=== PATIENT | female | born 1980 | race Caucasian/White ===

== ENCOUNTER 2016-10-15 10:07 | Observation (INO) | payer OTHER ==
[~2016-10-15] VITALS: Ht 157.5 cm; Wt 90.0 kg
[2016-10-15] VITALS (7 sets, daily range): BP systolic 120–144; BP diastolic 72–84; PULSE 77–104; RESP 15–20; TEMP 97.6–100; O2SAT 92–99
[~2016-10-15 10:07] MED LIST: CEPH500C3 PO; DICY10 PO; ESTRPOW15 XX; FENT100D T-DERMAL; LYRI150C PO; LYRI50CA PO; MORP1TAB24 PO; OXYC-360 PO; PREG75 PO
--- NOTE | 2016-10-15 10:47 | PD ---
HPI Chief Complaint: Numbness/Tingling Time Seen by Provider: 10:40 Travel History International Travel<30 days: No Contact w/Intl Traveler<30days: No Traveled to known affect area: No History of Present Illness HPI RT CALF NUMBNESS ONGOING FOR AT LEAST 28HRS OR SO, PRESENTED TO [facility] HAD CT HEAD/LABS AND PLAN WAS TO TRANSFER TO [facility] FOR ADMIT BUT PATIENT DID NOT WANT TO COME BY [facility] Past Medical History Anxiety: Yes Diminished Hearing: No Genitourinary: Yes (urethral spasms) Musculoskeletal: Yes (thoracic herniated disc) Tetanus Vaccination: > 5 Years Influenza Vaccination: Yes ?: Not Past Surgical History Appendectomy: Yes Section: Yes Cholecystectomy: Yes Hysterectomy: Yes Tonsillectomy: Yes Social History Alcohol Use: Yes (socially) Tobacco Use: Yes Substance Use: No (pt denies ) Allergies-Medications (Allergen,Severity, Reaction): Coded Allergies: Codeine (Verified Adverse Reaction, Severe, Hallucinations, 10/15/16) Reported Meds & Prescriptions Reported Meds & Active Scripts Active Reported Morphine ER (Morphine Sulfate) 15 Mg Tab 15 Mg PO Q8H Lyrica (Pregabalin) 150 Mg Cap 150 Mg PO TID Fentanyl Patch 72 HR (Fentanyl) 100 Mcg/Hr Patch 100 Mcg T-DERMAL Q72H Remove old patch when new one placed. Physical Exam Narrative GENERAL: SKIN: Warm and dry. HEAD: Atraumatic. Normocephalic. EYES: Pupils equal and round. No scleral icterus. No injection or drainage. ENT: No nasal bleeding or discharge. Mucous membranes pink and moist. NECK: Trachea midline. No JVD. CARDIOVASCULAR: Regular rate and rhythm. RESPIRATORY: No accessory muscle use. Clear to auscultation. Breath sounds equal bilaterally. GASTROINTESTINAL: Abdomen soft, non-tender, nondistended. MUSCULOSKELETAL: Extremities without clubbing, cyanosis, or edema. No obvious deformities. NEUROLOGICAL: Awake and alert. No obvious cranial nerve deficits. Motor grossly within normal limits. Five out of 5 muscle strength in the arms and legs. Normal speech. PSYCHIATRIC: Appropriate mood and affect; insight and judgment normal. Data Data Last Documented VS Vital Signs Date Time Temp Pulse Resp B/P Pulse Ox O2 Delivery O2 Flow Rate FiO2 10/15/16 11:41 97.8 87 16 138/77 99 Room Air Orders Us Leg Venous Doppler (10/15/16 ) Urinary Catheter Insert/Apply (10/15/16 11:03) Place In Observation (10/15/16 ) Vital Signs (Adult) Q4H (10/15/16 11:22) Neuro Checks Q4H (10/15/16 11:22) Activity Oob With Assistance (10/15/16 11:22) Diet Regular Basic (10/15/16 Lunch) Sodium Chloride 0.9% Flush (Ns Flush) (10/15/16 11:30) Sodium Chloride 0.9% Flush (Ns Flush) (10/15/16 21:00) Acetaminophen (Tylenol) (10/15/16 11:30) Ondansetron Inj (Zofran Inj) (10/15/16 11:30) Scd Bilateral/Knee High [place].BID (10/15/16 11:22) Naloxone Inj (Narcan Inj) (10/15/16 11:30) Docusate Sodium-Senna (Casie-Colace) (10/15/16 21:00) Magnesium Hydroxide Liq (Milk Of Magnesi (10/15/16 11:30) Sennosides (Senokot) (10/15/16 11:30) Bisacodyl Supp (Dulcolax Supp) (10/15/16 11:30) Lactulose Liq (Lactulose Liq) (10/15/16 11:30) Admit Order (Ed Use Only) (10/15/16 11:45) MDM Medical Decision Making Medical Screen Exam Complete: Yes Emergency Medical Condition: Yes Medical Record Reviewed: Yes Differential Diagnosis tia v cva v paresthesia v conus medullaris Narrative Course patient was intially fully evaluated at [facility] and was meant to be transferred to [facility] however patient decided to come on her own. hospitlaist called to admit for further testing/evaluation Diagnosis Primary Impression: Distal paresthesia Admitting Information Admitting Physician Requests: Observation Cj Greco MD Oct 15, 2016 10:47
--- NOTE | 2016-10-15 11:29 | RADRPT ---
EXAM DATE/TIME: 10/15/2016 10:52 [facility] COMPARISON: No previous studies available for comparison. INDICATIONS : Right leg pain. MEDICAL HISTORY : Urethral spasms. Thoracic herniated disc. SURGICAL HISTORY : Tonsillectomy. Appendectomy. Cholecystectomy. Hysterectomy. . Back surgery. ENCOUNTER: Initial ACUITY: 1 day PAIN SCORE: 0/10 LOCATION: Right leg. TECHNIQUE: Venous ultrasound of the leg was performed from the inguinal ligament to the proximal calf. Real-jj e, color Doppler and spectral tracing, compression and augmentation techniques were used. FINDINGS: There is normal compressibility of the deep venous system from the inguinal region to the proximal ca lf. No echogenic clot is seen in the lumen of the common femoral, femoral, popliteal, and posterior tibial veins. There is a normal response of the venous system to proximal and distal augmentation an d respiration. CONCLUSION: Negative for deep venous thrombosis. Surendra Parada MD FACR on October 15, 2016 at 11:27 Board Certified Radiologist. This report was verified electronically.
[2016-10-15] MEDS ORDERED: SENNOSIDES 8.6 MG TAB PO PRN (11:30)
[2016-10-15] MEDS ORDERED: BISACODYL 10 MG SUPP RECTAL PRN (11:30)
[2016-10-15] MEDS ORDERED: SODIUM CHLORIDE 0.9% FLUSH 10 ML FLUSH IV FLUSH PRN (11:30)
[2016-10-15] MEDS ORDERED: MAGNESIUM HYDROXIDE SUSP 30 ML CUP PO PRN (11:30)
[2016-10-15] MEDS ORDERED: LACTULOSE SYRUP 20 GM/30 ML CUP PO PRN (11:30)
[2016-10-15] MEDS ORDERED: ACETAMINOPHEN 325 MG TAB PO PRN (11:30)
[2016-10-15] MEDS ORDERED: ONDANSETRON HCL 4 MG/2 ML VIAL IVP PRN (11:30)
[2016-10-15] MEDS: SODIUM CHLOR 0.9% 1000 ML INJ 1,000 ML IV SCH (12:26)
--- NOTE | 2016-10-15 15:51 | HHI.HP ---
[facility] Primary [facility] Physician John Barton M.D. Admission Diagnosis RLE PARESTHESIA Diagnoses: Chief Complaint: Right lower extremity numbness Travel History International Travel<30 Days: No Contact w/Intl Traveler <30 Da: No Traveled to Known Affected Are: No History of Present Illness Written by Stu Monson, acting as scribe for Dr. Ma on 10/15/16 at 15:41. This note was transcribed by scribANGELA Shrestha. I, Dr. Robert Ma personally performed the history, physical exam, and medical decision making; and confirmed the accuracy of the information in the transcribed note. Authenticated by Dr. Robert Ma on 10/15/16 at 21:52. 36-year-old female with a past medical history of DDD and chronic back pain who presented with right lower extremity numbness. The patient states he has showed a she began having numbness, weakness, and pain below her right knee. She states the pain is worsened when she tries to ambulate or bear weight on the leg. She states that she had acute exacerbation of her chronic back pain last week and her Lyrica was increased from 150 mg to 200 mg. She states that she's been having some urinary retention today, but does have a history of that requiring urethral stricture dilation in the past. She denies any urinary or bowel incontinence. The patient states she did not sleep well last night secondary to pain and states she is fatigued at this time. She does seem to have some confusion about where her doctor's are located, however she is oriented to person, hospital, and time. She is requesting her abdominal pad to be restarted as she has not had it on today. She follows with a neurosurgeon and pain doctor out of [facility]. PCP is Dr. Barton. She reports she last had spinal MRIs done last December. History of 9 back surgeries. Review of Systems Except as stated in HPI: all other systems reviewed are Neg Past Family Social History Past Medical History Chronic back pain Degenerative disc disease History of urethral strictures Past Surgical History Back surgery 4 Cholecystectomy Appendectomy Hysterectomy Tonsillectomy Pain pump placement and removal Reported Medications Reported and confirmed on EFORCE Morphine ER (Morphine Sulfate) 15 Mg Tab 15 Mg PO Q8H Lyrica (Pregabalin) 150 Mg Cap 150 Mg PO TID Fentanyl Patch 72 HR (Fentanyl) 100 Mcg/Hr Patch 100 Mcg T-DERMAL Q72H Remove old patch when new one placed. Allergies: Coded Allergies: Codeine (Verified Adverse Reaction, Severe, Hallucinations, 10/15/16) Active Ordered Medications Current Medications Medications (Trade) Dose Ordered Sig/Elieser Route Start Time Stop Time Status Last Admin (NS Flush) 2 ml UNSCH PRN IV FLUSH 10/15/16 11:30 (NS Flush) 2 ml BID IV FLUSH 10/15/16 21:00 (Tylenol) 650 mg Q4H PRN PO 10/15/16 11:30 (Zofran Inj) 4 mg Q6H PRN IVP 10/15/16 11:30 (Narcan Inj) 0.4 mg UNSCH PRN IV 10/15/16 11:30 (Casie-Colace) 1 tab BID PO 10/15/16 21:00 (Milk Of Magnesia Liq) 30 ml Q12H PRN PO 10/15/16 11:30 (Senokot) 17.2 mg Q12H PRN PO 10/15/16 11:30 (Dulcolax Supp) 10 mg DAILY PRN RECTAL 10/15/16 11:30 Lactulose 30 ml 30 ml DAILY PRN PO 10/15/16 11:30 (NS 1000 ml Inj) 1,000 ml @ 84 mls/hr [id number] IV 10/15/16 12:15 10/15/16 12:26 (Duragesic 100 Mcg Patch.72 Hr) 1 patch Q72H T-DERMAL 10/15/16 16:00 UNV (Lyrica) 150 mg TID PO 10/15/16 18:00 UNV (Oramorph Sr) 15 mg Q8HR PRN PO 10/15/16 16:00 UNV Family History Father had recent CABG and bone cancer as a child Mother has COPD Social History Smokes 1.5 packs per day Denies any alcohol use Physical Exam Vital Signs Vital Signs Date Time Temp Pulse Resp B/P Pulse Ox O2 Delivery O2 Flow Rate FiO2 10/15/16 14:47 78 16 120/84 99 10/15/16 13:00 97.8 77 17 123/81 99 Room Air 10/15/16 11:41 97.8 87 16 138/77 99 Room Air 10/15/16 10:36 76 16 99 Room Air 10/15/16 10:13 98.2 78 15 141/80 99 Physical Exam GENERAL: Well-developed well-nourished. In no acute distress. SKIN: Warm and dry. No lesions noted. HEENT: Normocephalic. Pupils equal and round. Mucous membranes pink and moist. CARDIOVASCULAR: Regular rate and rhythm. No murmur appreciated. RESPIRATORY: No accessory muscle use. Clear to auscultation. Breath sounds equal bilaterally. GASTROINTESTINAL: Abdomen soft, non-tender, nondistended. Bowel sounds x4. MUSCULOSKELETAL: No obvious deformities. No clubbing or cyanosis. No edema. NEUROLOGICAL: Sleepy, oriented 3. Moves upper and lower extremities spontaneously. Normal speech. Right lower extremity weakness and subjectively decreased sensation below the knee. PSYCHIATRIC: Appropriate mood and affect; insight and judgment normal. Laboratory Laboratory workup conducted in the ED earlier today was remarkable for BUN 27, creatinine 2.2, EGFR 25, random glucose 141, d-dimer 0.87, and urine toxicology positive only for opiates. Imaging Head CT in the [place] ED done earlier today showed no evidence of acute intracranial pathology. No masses identified. Assessment and Plan Assessment and Plan 36-year-old female with a past medical history of DDD and chronic back pain who presented with right lower extremity numbness Right lower extremity weakness, paresthesia, pain, questionable confusion: Head CT unremarkable. Ultrasound negative for DVT. Check lumbar spine MRI. Neuro checks. Consult neurology. Acute kidney injury: Patient denies prior kidney disease. Possibly secondary to urinary retention. Creatinine 2.2, no previous labs for comparison. Check bladder scan and insert Mcginnis catheter if indicated. IVF. Follow-up BMP. Discussed with pharmacy, need to hold Lyrica pending renal function improvement. Chronic pain: Confirmed home pain regimen, resume fentanyl patch, morphine ER, and Lyrica. Continue home meds as indicated, hold for sedation. DVT prophylaxis: SCDs Discussed Condition With Patient, RN, ED staff Stu Monson Oct 15, 2016 15:51 Denis Ma DO Oct 15, 2016 21:52
[2016-10-15] MEDS ORDERED: MORPHINE SULFATE 15 MG CONTROLLED RELEASE TAB PO PRN (16:00)
[2016-10-15] MEDS ORDERED: fentaNYL 100 MCG/HR PATCH T-DERMAL SCH ×2 (16:00→18:00)
[2016-10-15] MEDS ORDERED: NICOTINE 21 MG/24 HR PATCH T-DERMAL SCH (16:00)
[2016-10-15 18:00] LABS: AUTOMATED NEUTROPHIL # 6.9 TH/MM3 (1.8-7.7); BASOPHIL # 0.1 TH/MM3 (0-0.2); BASOPHIL % 0.6 % (0.0-2.0); EOSINOPHIL # 0.5 TH/MM3 (0-0.4); EOSINOPHIL % 4.4 % (0.0-4.0); HEMATOCRIT 36.7 % (35.0-46.0); LYMPH % 30.3 % (9.0-44.0); LYMPHOCYTE # 3.6 TH/MM3 (1.0-4.8); MEAN CELL VOLUME 89.5 FL (80.0-100.0); MEAN CORPUSCULAR HEMOGLOBIN 30.7 PG (27.0-34.0); MEAN CORPUSCULAR HGB CONC 34.2 % (32.0-36.0); MONO % 6.8 % (0.0-8.0); NEUT % 57.9 % (16.0-70.0); PLATELET COUNT 188 TH/MM3 (150-450); RED CELL DISTRIBUTION WIDTH 13.3 % (11.6-17.2); WHITE BLOOD COUNT 11.8 TH/MM3 (4.0-11.0)
[2016-10-15] MEDS ORDERED: PREGABALIN 75 MG CAP PO SCH (18:00)
[2016-10-15] MEDS ORDERED: REMOVE OLD DURAGESIC (FENTANYL) PATCH T-DERMAL SCH (18:00)
[2016-10-15 18:01] LABS: HEMO FLAGS AUTO DIFF
--- NOTE | 2016-10-15 18:15 | RADRPT ---
EXAM DATE/TIME: 10/15/2016 17:20 [facility] COMPARISON: No previous studies available for comparison. INDICATIONS : Obstruction. MEDICAL HISTORY : Hypertension. Urethral spasms. Thoracic herniated disc. Anxiety. SURGICAL HISTORY : Tonsillectomy. Appendectomy. Cholecystectomy. section. Back surgery. Hysterectomy. ENCOUNTER: Initial ACUITY: 1 day PAIN SCORE: Nonresponsive. LOCATION: Bilateral flank MEASUREMENTS: RIGHT KIDNEY: 11.5 x 5.3 x 5.6 cm LEFT KIDNEY: 13.7 x 4.9 x 6.6 cm FINDINGS: RIGHT KIDNEY: Renal cortex is normal in thickness. There are 2 focal hyperechogenic linear areas in the cortex, up per pole measuring 1.3 x 1.5 cm and midpole measuring 1.3 x 0.8 cm. These could represent calcificat ions, but are not projected within the collecting system. LEFT KIDNEY: Renal cortex is normal in thickness and echotexture. No hydronephrosis, stone, or mass. BLADDER: Within normal limits given the degree of distension. CONCLUSION: 1. No evidence of hydronephrosis. 2. 2 hyperechogenic foci in the parenchyma of the right kidney which cannot be further characterized by ultrasound. This could represent focal calcifications. Christiano Reddy MD on October 15, 2016 at 18:11 Board Certified Radiologist. This report was verified electronically.
[2016-10-15 18:23] LABS: BICARBONATE 28.3 MEQ/L (21.0-32.0); POTASSIUM 3.9 MEQ/L (3.5-5.1)
[2016-10-15 18:38] LABS: SCAN/DIFF AUTO DIFF CONFIRMED
[2016-10-15] MEDS ORDERED: LORazepam 1 MG TAB PO ONE (18:45)
--- NOTE | 2016-10-15 20:08 | RADRPT ---
EXAM DATE/TIME: 10/15/2016 19:10 [facility] COMPARISON: No previous studies available for comparison. INDICATIONS : Radiculopathy. Right lower extremtiy weakness. MEDICAL HISTORY : None. SURGICAL HISTORY : Cholecystectomy. Appendectomy. Lumbar laminectomy. ENCOUNTER: Initial ACUITY: 1 day PAIN SCORE: 5/10 LOCATION: Lower back. TECHNIQUE: Multiplanar multisequence MRI of the lumbar spine was performed without contrast. FINDINGS: The most caudal appearing lumbar vertebra is numbered as L5. There is normal alignment of the verteb ral bodies of the ce lumbar spine and preservation of vertebral body height. No signal abnormalities in the marrow. There is desiccation of the L4-5 and L5-S1 discs. The conus is at the level of L1. T12-L1: The thecal sac has a normal diameter. No evidence of disc bulge or protrusion. The neural foramina are patent bilaterally. L1-L2: The thecal sac has a normal diameter. No evidence of disc bulge or protrusion. The neural foramina are patent bilaterally. L2-L3: The thecal sac has a normal diameter. No evidence of disc bulge or protrusion. The neural foramina are patent bilaterally. L3-L4: The thecal sac has a normal diameter. No evidence of disc bulge or protrusion. The neural foramina are patent bilaterally. L4-L5: The thecal sac is normal in configuration. There is mild bulging of the disc and the neural foramen on both sides without evidence of neural impingement. L5-S1: Broad-based bulging of the disc without deformity of the thecal sac. Disc bulge extends into the barbara ral foramen on both sides and, on the left side, possible protrusion in the far lateral position. CONCLUSION: Disc degeneration at L4-5 and L5-S1 with broad-based bulging. Possible small protrusion of the disc at L5-S1 on the left side into the neural foramen far lateral position. Christiano Reddy MD on October 15, 2016 at 20:04 Board Certified Radiologist. This report was verified electronically.
--- NOTE | 2016-10-15 20:09 | RADRPT ---
EXAM DATE/TIME: 10/15/2016 19:10 [facility] COMPARISON: No previous studies available for comparison. INDICATIONS : Altered mental status. MEDICAL HISTORY : None. SURGICAL HISTORY : Cholecystectomy. Appendectomy. Lumbar laminectomy. ENCOUNTER: Subsequent ACUITY: 1 day PAIN SCORE: 3/10 LOCATION: cranial TECHNIQUE: Multiplanar, multisequence MRI of the brain was performed without contrast. Rapid acquisition sequen mago were utilized. FINDINGS: CEREBRUM: The ventricles are normal for age. No evidence of midline shift, mass lesion, hemorrhage or acute in farction. No extraaxial fluid collections are seen. The pituitary gland and suprasellar cistern are normal in configuration. WHITE MATTER: No significant signal abnormalities are seen in the white matter. POSTERIOR FOSSA: The cerebellum and brainstem are intact. The 4th ventricle is midline. The cerebellopontine angle is unremarkable. The cerebellar tonsils are normal in position. DIFFUSION IMAGING: No focal areas of restricted diffusion are seen. No evidence of acute infarction. EXTRACRANIAL: The visualized portions of the orbits and paranasal sinuses are unremarkable. CONCLUSION: Negative MRI of the brain without contrast. Christiano Reddy MD on October 15, 2016 at 20:07 Board Certified Radiologist. This report was verified electronically.
[2016-10-15] MEDS ORDERED: DOCUSATE SODIUM 50 MG/SENNA 8.6 MG TAB PO SCH (21:00)
[2016-10-15] MEDS ORDERED: SODIUM CHLORIDE 0.9% FLUSH 10 ML FLUSH IV FLUSH SCH (21:00)
[2016-10-15] MEDS ORDERED: NALOXONE HCL 2 MG/2 ML VIAL IV ONE (21:30)
[2016-10-15] MEDS: NALOXONE HCL 0.4 MG/ML AMP IV PRN ×2 (21:47→21:49)
--- NOTE | 2016-10-15 21:49 | MB ---
cc: [facility] DATE OF CONSULTATION 10/15/16 REASON FOR CONSULTATION Encephalopathy, right leg numbness. HISTORY OF PRESENT ILLNESS Ms. Myers is a 36-year-old female who presents with low back pain which is chronic and right lower extremity numbness. She has been very confused and disoriented as well. She has chronic back pain. Recently Lyrica was increased from 150 milligrams to 200 milligrams. Apparently, also is on morphine ER for pain and Fentanyl patch. NEUROLOGIC EXAMINATION VITAL SIGNS: The vital signs reveal blood pressure of 144/82, pulse 95, respiratory rate is 20, temperature 97.6 degrees. NEURO: Higher cortical function she is very lethargic. She is disoriented to date and place, very confused. Her speech is hypophonic. She can follow simple commands. Cranial nerves intact. Motor exam she demonstrates 5/5 strength in all major groups. She has myoclonus as well as asterixis in the upper extremities. Reflexes symmetric. She complained of decreased sensitivity in the right leg in a diffuse pattern. IMAGING STUDIES MRI of the brain is normal. MRI of the lumbar spine showed degenerate disk disease at L4-5 and L5-S1 levels with neural foramen encroachment. Ultrasound of the right leg is negative for DVT. Renal ultrasound two hyperechoic foci in the parenchyma of the right kidney. There is no hydronephrosis. LABORATORY DATA The white count is 7800, hemoglobin 12.6, hematocrit 36.7%, platelet count 188,000. The sodium is 140, potassium 3.9, chloride 106, CO2 28.3, BUN is 21, creatinine 1.61, GFR is 36, glucose 98. IMPRESSION The patient has what appears to be a metabolic encephalopathy. She has myoclonus and asterixis. This could be somewhat the effects of pain medication as well. RECOMMENDATIONS Would recommend reduction in pain medications. I would like to get additional labs for metabolic workup including LFTs, ammonia level, thyroid panel, B12 level, also obtain an EEG. MD MERLY Rubin/CARLITOS /8:41 PM /9:37 PM
[2016-10-15] MEDS ORDERED: fentaNYL 50 MCG/HR PATCH T-DERMAL SCH (22:00)
[2016-10-15] MEDS ORDERED: NALOXONE HCL 2 MG/2 ML VIAL IV PRN (22:00)
[2016-10-16 00:15] LABS: FREE T4 1.34 NG/DL (0.76-1.46); INDIRECT BILIRUBIN 0.3 MG/DL (0.0-0.8); TOTAL BILIRUBIN ADULT 0.4 MG/DL (0.2-1.0)
[2016-10-16 00:39] VITALS: BP 124/79; PULSE 105; TEMP 101.3; O2SAT 95
[2016-10-16 02:05] LABS: ACETAMINOPHEN LESS THAN 2.0 MCG/ML (10.0-30.0)
[2016-10-16 02:31] LABS: AMPHETAMINE, URINE NEG (NEG); BARBITURATES, URINE NEG (NEG); COCAINE, URINE NEG (NEG)
[2016-10-16 04:09] VITALS: BP 115/67; PULSE 93; TEMP 98.8; O2SAT 93
[2016-10-16] MEDS: SODIUM CHLOR 0.9% 1000 ML INJ 1,000 ML IV SCH (06:09)
--- NOTE | 2016-10-16 08:55 | HHI.PR ---
Subjective Subjective Remarks Patient very upset, angry, RN and charge nurse at bedside Patient wants to go outside for smoking didn't come back She doesn't understand why the policy is so strict I tried to reason with the patient and explained the imaging findings up to this point and encouraged her to remain in the hospital to continue further workup to find cause for her right lower extremity paresthesia, patient states she doesn't want to remain in the hospital and would rather leave so she can smoke Patient was noted febrile at midnight, 101.3 with some tachycardia I discussed with the patient that she did have a fever Patient insisted on going, she is signing AMA paperwork Review of Systems Constitutional Constitutional Remarks Unable to do ROS Vitals/Results Intake & Output 10/15/16 10/15/16 10/16/16 15:00 23:00 07:00 Intake Total 300 ml 400 ml Balance 300 ml 400 ml Intake Oral 300 ml 400 ml # Bowel Movements 0 Vital Signs Vital Signs Date Time Temp Pulse Resp B/P Pulse Ox O2 Delivery O2 Flow Rate FiO2 10/16/16 04:09 98.8 93 115/67 93 10/16/16 00:39 101.3 105 124/79 95 10/15/16 21:04 104 125/72 96 10/15/16 20:05 100.0 95 20 144/82 92 10/15/16 16:51 97.6 90 18 125/79 96 10/15/16 14:47 78 16 120/84 99 10/15/16 13:00 97.8 77 17 123/81 99 Room Air 10/15/16 11:41 97.8 87 16 138/77 99 Room Air 10/15/16 10:36 76 16 99 Room Air 10/15/16 10:13 98.2 78 15 141/80 99 CBC/BMP: 10/15/16 1742 10/15/16 1742 Lab Results Laboratory Tests Test 10/15/16 10/15/16 10/15/16 10/16/16 17:42 22:40 23:00 01:00 White Blood Count 11.8 TH/MM3 Red Blood Count 4.10 MIL/MM3 Hemoglobin 12.6 GM/DL Hematocrit 36.7 % Mean Corpuscular Volume 89.5 FL Mean Corpuscular Hemoglobin 30.7 PG Mean Corpuscular Hemoglobin 34.2 % Concent Red Cell Distribution Width 13.3 % Platelet Count 188 TH/MM3 Mean Platelet Volume 9.4 FL Neutrophils (%) (Auto) 57.9 % Lymphocytes (%) (Auto) 30.3 % Monocytes (%) (Auto) 6.8 % Eosinophils (%) (Auto) 4.4 % Basophils (%) (Auto) 0.6 % Neutrophils # (Auto) 6.9 TH/MM3 Lymphocytes # (Auto) 3.6 TH/MM3 Monocytes # (Auto) 0.8 TH/MM3 Eosinophils # (Auto) 0.5 TH/MM3 Basophils # (Auto) 0.1 TH/MM3 CBC Comment AUTO DIFF Differential Comment AUTO DIFF CONFIRMED Sodium Level 140 MEQ/L Potassium Level 3.9 MEQ/L Chloride Level 106 MEQ/L Carbon Dioxide Level 28.3 MEQ/L Anion Gap 6 MEQ/L Blood Urea Nitrogen 21 MG/DL Creatinine 1.61 MG/DL Estimat Glomerular Filtration 36 ML/MIN Rate Random Glucose 98 MG/DL Calcium Level 8.7 MG/DL Ammonia 34 MCMOL/L Total Bilirubin 0.4 MG/DL Direct Bilirubin 0.1 MG/DL Indirect Bilirubin 0.3 MG/DL Aspartate Amino Transf 241 U/L (AST/SGOT) Alanine Aminotransferase 77 U/L (ALT/SGPT) Alkaline Phosphatase 83 U/L Total Protein 6.1 GM/DL Albumin 2.7 GM/DL Vitamin B12 Level 228 PG/ML Free Thyroxine 1.34 NG/DL Thyroid Stimulating Hormone 0.583 uIU/ML 3rd Gen Acetaminophen Level LESS THAN 2.0 MCG/ML Ethyl Alcohol Level LESS THAN 3 MG/DL Erythrocyte Sedimentation Rate 41 mm/hr Urine Opiates Screen POS Urine Barbiturates Screen NEG Urine Amphetamines Screen NEG Urine Benzodiazepines Screen NEG Urine Cocaine Screen NEG Urine Cannabinoids Screen NEG Physical Exam General Appearance Remarks Unable to assess patient, patient leaving AMA Neurologic Neuro Exam: Alert, Awake Assessment/Plan Problem List: (1) Distal paresthesia (2) Fever Assessment/Plan 36-year-old female with a past medical history of DDD and chronic back pain who presented with right lower extremity numbness Right lower extremity weakness, paresthesia, pain, questionable confusion: Head CT unremarkable. Ultrasound negative for DVT. Check lumbar spine MRI. Neuro checks. Evaluated per neurology. Acute kidney injury: Patient denies prior kidney disease. Possibly secondary to urinary retention. Creatinine 2.2, no previous labs for comparison. Check bladder scan and insert Mcginnis catheter if indicated. IVF. Follow-up BMP. Chronic pain: Confirmed home pain regimen, resume fentanyl patch, morphine ER, and Lyrica. Continued home meds as indicated, hold for sedation. DVT prophylaxis: SCDs Pt. signed out AMA Problem Qualifiers (1) Fever: Qualified Code: R50.9 - Fever, unspecified fever cause Ambreen Kay [facility] Oct 16, 2016 08:55
--- NOTE | 2016-10-16 08:57 | PD.AMA ---
Against Medical Advice Note Diagnosis: (1) Distal paresthesia (2) Fever (3) Renal failure Discharge Disposition: Against Medical Advice Pt Condition on Discharge: Fair Recommended Treatment Course Patient upset, anxious, wants to go for smoking. Does not want to remain in hospital and continue with further workup into her complaint. Instructed her to follow up with neurology for further outpatient treatment if necessary AMA Statement Patient Coty Myers has decided to leave the hospital against medical advice. This patient has the capacity to refuse care and understands the risks of leaving, including permanent disability and/or , and has had an opportunity to ask questions about her condition. The patient has been informed that she may return for care at any time, and follow up has been arranged/ advised. Ambreen Kay. [facility] Oct 16, 2016 08:57
[2016-10-16] MEDS ORDERED: REMOVE OLD PATCH T-DERMAL SCH (09:00)
[2016-10-16 09:17] LABS: AUTOMATED NEUTROPHIL # 3.2 TH/MM3 (1.8-7.7); BASOPHIL % 0.6 % (0.0-2.0); EOSINOPHIL # 0.5 TH/MM3 (0-0.4); EOSINOPHIL % 6.8 % (0.0-4.0); HEMATOCRIT 36.5 % (35.0-46.0); HEMO FLAGS DIFF FINAL; LYMPH % 44.2 % (9.0-44.0); LYMPHOCYTE # 3.5 TH/MM3 (1.0-4.8); MEAN CELL VOLUME 89.8 FL (80.0-100.0); MEAN CORPUSCULAR HEMOGLOBIN 30.6 PG (27.0-34.0); MEAN CORPUSCULAR HGB CONC 34.1 % (32.0-36.0); MONO % 7.6 % (0.0-8.0); NEUT % 40.8 % (16.0-70.0); PLATELET COUNT 210 TH/MM3 (150-450); RED BLOOD COUNT 4.06 MIL/MM3 (4.00-5.30); RED CELL DISTRIBUTION WIDTH 13.5 % (11.6-17.2); WHITE BLOOD COUNT 7.9 TH/MM3 (4.0-11.0)
[2016-10-16] MEDS ORDERED: INFLUENZA VIRUS VACCINE (QUADRIVALENT) 0.5 ML SYR IM ONE (10:00)
[2016-10-16 11:04] LABS: BICARBONATE 22.2 MEQ/L (21.0-32.0); INDIRECT BILIRUBIN 0.2 MG/DL (0.0-0.8); TOTAL BILIRUBIN ADULT 0.3 MG/DL (0.2-1.0)
--- NOTE | 2016-10-16 13:13 | EKG ---
Date Performed: 10/15/2016 Time Performed: 21:41:40 PTAGE: 36 years EKG: SINUS TACHYCARDIA BORDERLINE RIGHT AXIS DEVIATION INCOMPLETE RIGHT BUNDLE BRANCH BLOCK ABNO RMAL RHYTHM ECG NO PREVIOUS TRACING DOCTOR: Chandler Lemus Interpretating Date/Time 10/16/2016 13:10:58
== END 2016-10-16 09:55 | disposition left against medical advice (07) ==
LOC: NEPE 10:07 → MERGE 11:49 → NEDA 11:49 → NEPGCP 15:09
PROVIDERS: ADMIT Specialist; ATTEND Specialist
DX: R20.0 Anesthesia of skin (principal); R20.2 Paresthesia of skin; R53.1 Weakness; R50.9 Fever, unspecified; M79.604 Pain in right leg; R41.82 Altered mental status, unspecified; N17.9 Acute kidney failure, unspecified; R33.9 Retention of urine, unspecified; R53.83 Other fatigue; R00.0 Tachycardia, unspecified; R94.31 Abnormal electrocardiogram [ECG] [EKG]; I45.10 Unspecified right bundle-branch block; I10 Essential (primary) hypertension; G89.29 Other chronic pain; M51.37 Other intervertebral disc degeneration, lumbosacral region; M51.24 Other intervertebral disc displacement, thoracic region; M54.10 Radiculopathy, site unspecified; G93.40 Encephalopathy, unspecified; G25.3 Myoclonus; R27.8 Other lack of coordination; F41.9 Anxiety disorder, unspecified; F17.200 Nicotine dependence, unspecified, uncomplicated; Z79.899 Other long term (current) drug therapy; Z53.21 Procedure and treatment not carried out due to patient leaving prior to being seen by health care provider
CPT/HCPCS: 70551; 72148; 76775; 80048; 80076; 80307; 82140; 82607; 84439; 84443; 85025; 85652; 93005; 93971; 96365; 96366; 96375; 99285; G0378; J2310; J7030